=== PATIENT | female | born 1930 | race Caucasian/White ===

== ENCOUNTER → 2016-09-27 | Outpatient (CLI) | payer MEDICARE ==
[~2016-09-27] VITALS: Ht 162.6 cm; Wt 64.4 kg
[~2016-09-27] MED LIST: /ACET5TA PO; /AMIO20TA OR; /MAGN40TA PO; /WARF25TA PO; ALBU0.5N IN; ALDA25TA2 PO; AZIT500I IV; CEFT1INJ3 IV; CLON3PA TD; FURO40TA2 PO; GLYCOPYRROLATE INJ 0.2 MG/ML 2 ML VIAL As Ordered ONE; KLOR1CAP2 PO; LIDOCAINE 2% INJ 100 MG/5 ML SDV (FOR ANES.) As Ordered ONE; LISI2.5T PO; LOPR50TA PO; LOVA40TA PO; MELA0.02 PO; METO50TA2 PO; OMEP20CA3 PO; PANT20TA PO; PERCOCET PO; PRED10TA2 PO; PRIL20CA PO; PROPOFOL 200 MG/20 ML VIAL As Ordered ONE; ROCA0.5C PO; SIMV20TA2 PO; SOLU125I IV; TYLE1TAB5 PO; TYLE325C PO; TYLE325T5 PO; ULTR50TA PO; VIBR100C PO; ZETI10TA2 PO; ZOCO10TA PO; potassium OR
--- NOTE | 2016-09-27 13:37 | ROOR ---
Patient Name: Deepika Frank Procedure Date: 09/27/2016 1:06 PM Date of : 1930 Age: 85 Room: [facility] Gender: Female Note Status: Finalized Procedure: Upper GI endoscopy + Balloon Dilatation Indications: Dysphagia, Abnormal UGI series Providers: Corey Juarez MD Referring MD: AUGIE SEAMAN MD Requesting Provider: Medicines: Monitored Anesthesia Care Complications: No immediate complications. Procedure: Pre-Anesthesia Assessment: - The heart rate, respiratory rate, oxygen saturations, blood pressure, adequacy of pulmonary ventilation, and response to care were monitored throughout the procedure. The Endoscope was introduced through the mouth, and advanced to the second part of duodenum. The upper GI endoscopy was accomplished without difficulty. The patient tolerated the procedure well. Findings: The Z-line was regular and was found 40 cm from the incisors. The exam of the esophagus was otherwise normal. The exam of the stomach was otherwise normal. The exam of the duodenum was otherwise normal. A TTS dilator was passed through the scope. Dilation with an 18-19-20 mm balloon (to a maximum balloon size of 20 mm) dilator was performed in the lower third of the esophagus. Impression: - Z-line regular, 40 cm from the incisors. - Dilation attempted in the lower third of the esophagus. Successful. - No specimens collected. - The examination was otherwise normal. Recommendation: - Patient has a contact number available for emergencies. The signs and symptoms of potential delayed complications were discussed with the patient. Return to normal activities tomorrow. Written discharge instructions were provided to the patient. - Discharge patient to home. - Continue present medications. - Follow an antireflux regimen. - Return to referring physician. - The findings and recommendations were discussed with the patient's family. Corey Juarez MD Corey Juarez MD 09/27/2016 1:37:25 PM This report has been signed electronically. Number of Addenda: 0 Note Initiated On: 09/27/2016 1:06 PM Estimated Blood Loss: Estimated blood loss: none.
[2016-09-27 14:02] VITALS: BP 122/71
== END ==
LOC: M OPP 11:32
PROVIDERS: ATTEND Internal Medicine Gastroenterology
DX: R93.3 Abnormal findings on diagnostic imaging of other parts of digestive tract (principal); R13.10 Dysphagia, unspecified; K22.2 Esophageal obstruction; I10 Essential (primary) hypertension; E78.5 Hyperlipidemia, unspecified; Z85.038 Personal history of other malignant neoplasm of large intestine; Z85.3 Personal history of malignant neoplasm of breast; Z88.6 Allergy status to analgesic agent; Z92.3 Personal history of irradiation; Z79.899 Other long term (current) drug therapy; F17.200 Nicotine dependence, unspecified, uncomplicated

== ENCOUNTER 2018-03-14 09:13 | Day surgery (SDC) | payer MEDICARE ==
[~2018-03-14 09:13] MED LIST changes: -/ACET5TA PO; -/AMIO20TA OR; -/MAGN40TA PO; -/WARF25TA PO; -ALBU0.5N IN; -ALDA25TA2 PO; -AZIT500I IV; -CEFT1INJ3 IV; -CLON3PA TD; -FURO40TA2 PO; -GLYCOPYRROLATE INJ 0.2 MG/ML 2 ML VIAL As Ordered ONE; -KLOR1CAP2 PO; -LIDOCAINE 2% INJ 100 MG/5 ML SDV (FOR ANES.) As Ordered ONE; -LISI2.5T PO; -LOPR50TA PO; -LOVA40TA PO; -MELA0.02 PO; -METO50TA2 PO; +MIDAZOLAM INJ 2 MG/2 ML VIAL (J2250) As Ordered; -OMEP20CA3 PO; -PANT20TA PO; -PERCOCET PO; -PRED10TA2 PO; -PRIL20CA PO; -PROPOFOL 200 MG/20 ML VIAL As Ordered ONE; -ROCA0.5C PO; -SIMV20TA2 PO; -SOLU125I IV; -TYLE1TAB5 PO; -TYLE325C PO; -TYLE325T5 PO; -ULTR50TA PO; -VIBR100C PO; -ZETI10TA2 PO; -ZOCO10TA PO; +fentaNYL 100 MCG/2 ML INJECTION (J3010) As Ordered; -potassium OR
[2018-03-14] MEDS ORDERED: ONDANSETRON 4MG/2ML VIAL (J2405) As Ordered ×2 (10:48)
[2018-03-14] MEDS ORDERED: LIDOCAINE 2% INJ 100 MG/5 ML SDV (FOR ANES.) As Ordered ×2 (10:48)
[2018-03-14] MEDS ORDERED: PROPOFOL 200 MG/20 ML VIAL As Ordered ×2 (10:48)
[2018-03-14] MEDS ORDERED: dexameTHASONE 4 MG/ML 1ML VIAL (J1100) As Ordered ×4 (10:48)
[2018-03-14] MEDS: OFLOXACIN 0.3 % (OCUFLOX) OPTH SOL 5ML OS ×2 (10:55)
[2018-03-14] MEDS: PROPARACAINE 0.5% OPHTH SOL 15ML OS ×2 (10:55)
[2018-03-14] MEDS: TROPICAMIDE 1% OPHTH SOLN 2ML OS ×2 (10:55)
[2018-03-14] MEDS: PHENYLEPHRINE 2.5% OPHTH SOL 2ML OS ×2 (10:56)
[2018-03-14] MEDS: DUOVISC (0.50ML VISCOAT/0.55ML PROVISC) OPHTH KIT As Ordered ×2 (11:34)
[2018-03-14] MEDS: LIDOCAINE 0.75%/EPINEPHRINE 0.025% IN BSS 1ML SYR INTRACAMERAL (OR ONLY) As Ordered (11:34)
[2018-03-14] MEDS: POVIDONE-IODINE 5% OPHTH PREP SOL 30ML As Ordered ×2 (11:34)
[2018-03-14] MEDS: ACETYLCHOLINE OPHTH SOLN 1% 2ML (MIOCHOL-E) As Ordered ×2 (11:34)
[2018-03-14] MEDS: BALANCED SALT IRRIGATION SOLUTION 500ML BAG (FOR OR EYE MACHINE) As Ordered ×2 (11:34)
[2018-03-14] MEDS: CEFUROXIME 1MG/0.1ML INTRACAMERAL INJ As Ordered ×2 (11:35)
[2018-03-14] MEDS: TRIAMCINOLONE PRES FR 40 MG/ML 1ML(TRIESENCE)(OR EYE ONLY)(J3300 PER 1MG) As Ordered ×2 (11:35)
[2018-03-14] MEDS ORDERED: ePHEDrine SULFATE 25 MG/5 ML(5MG/ML) SYRINGE As Ordered ×2 (12:06)
[2018-03-14] MEDS ORDERED: TOBRADEX OPHTH OINT 3.5 GM As Ordered ×2 (12:34)
[2018-03-14] MEDS ORDERED: LABETALOL HCL 100 MG/20 ML VIAL As Ordered ×2 (13:00)
[2018-03-14] MEDS ORDERED: ONDANSETRON 4MG/2ML VIAL (J2405) IV ×2 (13:15)
[2018-03-14] MEDS ORDERED: LR 1,000 ML IV ×2 (13:15)
[2018-03-14] MEDS ORDERED: LABETALOL HCL 100 MG/20 ML VIAL IV ×2 (13:15)
== END 2018-03-14 14:20 | disposition home or self-care (01) ==
LOC: M SDC 09:13
DX: T85.22XA Displacement of intraocular lens, initial encounter (principal); H43.02 Vitreous prolapse, left eye; H26.8 Other specified cataract; I11.9 Hypertensive heart disease without heart failure; E78.00 Pure hypercholesterolemia, unspecified; M12.89 Other specific arthropathies, not elsewhere classified, multiple sites; J44.9 Chronic obstructive pulmonary disease, unspecified; J30.9 Allergic rhinitis, unspecified; N18.3 Chronic kidney disease, stage 3 (moderate); K57.30 Diverticulosis of large intestine without perforation or abscess without bleeding; R06.00 Dyspnea, unspecified; R60.9 Edema, unspecified; F98.1 Encopresis not due to a substance or known physiological condition; E78.2 Mixed hyperlipidemia; E87.6 Hypokalemia; I51.7 Cardiomegaly; I34.0 Nonrheumatic mitral (valve) insufficiency; N39.3 Stress incontinence (female) (male); E55.9 Vitamin D deficiency, unspecified; Z88.6 Allergy status to analgesic agent; Z79.899 Other long term (current) drug therapy; Z90.710 Acquired absence of both cervix and uterus; Z92.3 Personal history of irradiation; Z85.3 Personal history of malignant neoplasm of breast; Z72.0 Tobacco use; Z96.642 Presence of left artificial hip joint
CPT/HCPCS: 66986

== ENCOUNTER → 2018-08-27 | Outpatient (REF) | payer MEDICARE ==
[2018-08-27 19:21] LABS: FERRITIN 125 NG/ML (8-252); IRON (FE) 42 UG/DL (50-170); PERCENT SATURATION 15.1 % (13.2-45.0); TOTAL IRON BINDING CAPACITY 278 UG/DL (250-450)
[2018-08-27 19:30] LABS: FOLATE 6.2 NG/ML; VITAMIN B12 LEVEL 384 PG/ML
== END ==
LOC: M LAB REF 18:07
DX: D64.9 Anemia, unspecified (principal)
CPT/HCPCS: 82746